=== PATIENT | female | born 2000 | race Caucasian/White ===

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

== ENCOUNTER 2022-12-17 01:55 | Emergency (ER) | payer MEDICAID ==
[~2022-12-17] VITALS: Ht 167.6 cm; Wt 84.1 kg
[2022-12-17 02:00] VITALS: TEMP 98.2
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
[2022-12-17] MEDS ORDERED: ondansetron 4mg rapidly disintigrating tab PO ONE (02:45)
[2022-12-17] MEDS ORDERED: LORazepam 2 mg/ml vial IM ONE (03:10)
[2022-12-17] MEDS ORDERED: LIDOcaine 1% 30ml preserv. free vial IJ ONE (03:15)
[2022-12-17] MEDS ORDERED: CLIN150C2 PO (05:05)
[2022-12-17] MEDS ORDERED: bacitracin 15gm ointment TP ONE (05:05)
[2022-12-17 05:25] VITALS: BP 120/80; PULSE 80; RESP 16; O2SAT 98
== END 2022-12-17 05:27 | disposition home or self-care (01) ==
LOC: ER 01:55
DX: S61.411A Laceration without foreign body of right hand, initial encounter (principal); Z79.2 Long term (current) use of antibiotics; W22.8XXA Striking against or struck by other objects, initial encounter; Y93.89 Activity, other specified; Y92.89 Other specified places as the place of occurrence of the external cause; Y99.8 Other external cause status
CPT/HCPCS: 12002; 73110; 73130; 99284; J2060; A6258; A6449

== ENCOUNTER 2023-09-28 13:06 | Emergency (ER) | payer MEDICAID ==
[~2023-09-28] VITALS: Ht 165.1 cm; Wt 89.4 kg
[2023-09-28 13:43] VITALS: BP 142/83; PULSE 90; RESP 16; TEMP 97.2; O2SAT 98
[2023-09-28] MEDS ORDERED: PRED20TA PO (14:31)
[2023-09-28] MEDS ORDERED: HYDR-3686 PO (14:31)
[2023-09-28] MEDS ORDERED: TRIA15CR61 TOP (14:31)
[2023-09-28] MEDS: diphenhydrAMINE 50 mg/ml inj IM ONE (14:51)
[2023-09-28] MEDS: dexamethasone sod phosphate 10mg/ml inj IM STA (14:51)
== END 2023-09-28 15:21 | disposition home or self-care (01) ==
LOC: ER 13:07
DX: L23.7 Allergic contact dermatitis due to plants, except food (principal); M79.7 Fibromyalgia
CPT/HCPCS: 96372; 99284; J1100; J1200

== ENCOUNTER 2024-02-10 17:30 | Emergency (ER) | payer MEDICAID ==
[~2024-02-10] VITALS: Ht 167.6 cm; Wt 93.6 kg
[2024-02-10] MEDS: dexamethasone sod phosphate 10mg/ml inj IM STA (18:21)
[2024-02-10] MEDS ORDERED: TRIA15CR61 TOP (18:47)
[2024-02-10 19:03] VITALS: BP 129/76; PULSE 70; RESP 16; TEMP 98.2; O2SAT 98
== END 2024-02-10 19:04 | disposition home or self-care (01) ==
LOC: ER 17:31
DX: O99.712 Diseases of the skin and subcutaneous tissue complicating pregnancy, second trimester (principal); Z3A.20 20 weeks gestation of pregnancy; L23.7 Allergic contact dermatitis due to plants, except food; Z87.440 Personal history of urinary (tract) infections
CPT/HCPCS: 99283

== ENCOUNTER 2024-09-30 17:47 | Emergency (ER) | payer MEDICAID ==
[~2024-09-30] VITALS: Ht 167.6 cm; Wt 79.5 kg
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
[2024-09-30 19:01] VITALS: BP 151/81; PULSE 110; RESP 14; O2SAT 98
[2024-09-30 19:55] VITALS: TEMP 98
== END 2024-09-30 19:58 | disposition home or self-care (01) ==
LOC: ER 17:47
DX: S90.511A Abrasion, right ankle, initial encounter (principal); M79.7 Fibromyalgia; W01.0XXA Fall on same level from slipping, tripping and stumbling without subsequent striking against object, initial encounter; Y93.89 Activity, other specified; Y92.89 Other specified places as the place of occurrence of the external cause; Y99.8 Other external cause status
CPT/HCPCS: 99283